=== PATIENT | male | born 1970 | race African-American/Black ===

== ENCOUNTER 2019-05-23 17:23 | Emergency (ER) | payer MEDICAID ==
[~2019-05-23] VITALS: Ht 177.8 cm; Wt 79.0 kg
[~2019-05-23 17:23] MED LIST: FLUT1DIS IH
[2019-05-23] MEDS ORDERED: ACETAMINOPHEN 500MG TABLET PO ONE (20:15)
[2019-05-23] MEDS ORDERED: TETANUS, DIPHTHERIA, PERTUSSIS VAC/PF 0.5ML (>7YR OLD) IM ONE (21:45)
[2019-05-23] MEDS ORDERED: BACITRACIN ZINC OINT UDPKT TOP ONE (21:45)
[2019-05-23] MEDS ORDERED: LIDOCAINE 1%/EPI 1:100,000 10 ML VIAL IJ ONE (21:45)
[2019-05-23 22:44] VITALS: BP 140/81
== END 2019-05-23 22:45 | disposition home or self-care (01) ==
LOC: ER 17:23
DX: S01.511A Laceration without foreign body of lip, initial encounter (principal); S09.8XXA Other specified injuries of head, initial encounter; J45.909 Unspecified asthma, uncomplicated; F17.210 Nicotine dependence, cigarettes, uncomplicated; Y04.0XXA Assault by unarmed brawl or fight, initial encounter; Y93.89 Activity, other specified; Y92.488 Other paved roadways as the place of occurrence of the external cause
CPT/HCPCS: 12011; 70450; 70486; 90471; 90715; 99284; A4217; J3490; Z7610

== ENCOUNTER 2019-06-08 08:21 | Emergency (ER) | payer MEDICAID ==
[~2019-06-08] VITALS: Ht 175.3 cm; Wt 85.0 kg
[2019-06-08 10:36] VITALS: BP 146/82
== END 2019-06-08 10:37 | disposition home or self-care (01) ==
LOC: ER 08:21
DX: L03.114 Cellulitis of left upper limb (principal); L03.113 Cellulitis of right upper limb; L30.9 Dermatitis, unspecified; J45.909 Unspecified asthma, uncomplicated; Z59.0 Homelessness
CPT/HCPCS: 99283

== ENCOUNTER 2024-07-27 18:07 | Emergency (ER) | payer SELFPAY ==
[~2024-07-27] VITALS: Ht 177.8 cm; Wt 80.0 kg
[2024-07-27 18:14] VITALS: O2SAT 98
[2024-07-27] MEDS ORDERED: LIDOCAINE HCL/EPINEPHRINE 1%-EPI 1:100,000 10ML VIAL INFIL ONE (19:30)
[2024-07-27] MEDS: TETANUS, DIPHTHERIA, PERTUSSIS VAC/PF 0.5ML (>10YR OLD) IM ONE (22:15)
[2024-07-27] MEDS: LIDOCAINE HCL/EPINEPHRINE 1%-EPI 1:100,000 20ML VIAL INFIL NR (22:16)
[2024-07-27 23:10] VITALS: BP 106/71; PULSE 71; RESP 12; TEMP 36.66960; O2SAT 98
[2024-07-28] MEDS ORDERED: NAPR-1176 MT (05:06)
== END 2024-07-27 23:10 | disposition home or self-care (01) ==
LOC: ER 18:07
DX: S01.112A Laceration without foreign body of left eyelid and periocular area, initial encounter (principal); S09.90XA Unspecified injury of head, initial encounter; G89.11 Acute pain due to trauma; J45.909 Unspecified asthma, uncomplicated; Z79.51 Long term (current) use of inhaled steroids; V16.4XXA Pedal cycle driver injured in collision with other nonmotor vehicle in traffic accident, initial encounter; Y93.89 Activity, other specified; Y92.89 Other specified places as the place of occurrence of the external cause; Y99.8 Other external cause status
CPT/HCPCS: 70450; 90715; 12013; 90471; 99285; J3490; Z7610 ×3

== ENCOUNTER 2024-07-28 04:40 | Emergency (ER) | payer SELFPAY ==
[2024-07-28] MEDS ORDERED: NAPR-1176 MT (05:06)
[2024-07-28] MEDS: ACETAMINOPHEN 500MG TABLET PO ONE (05:55)
[2024-07-28 06:10] VITALS: BP 121/72; PULSE 60; RESP 12; O2SAT 100
== END 2024-07-28 06:11 | disposition home or self-care (01) ==
LOC: ER 04:40
DX: R51.9 Headache, unspecified (principal); J45.909 Unspecified asthma, uncomplicated
CPT/HCPCS: 99282